=== PATIENT | male | born 1975 | race Caucasian/White ===

== ENCOUNTER 2017-11-12 21:46 | Emergency (ER) | payer OTHER ==
[~2017-11-12] VITALS: Ht 182.9 cm; Wt 82.2 kg
[~2017-11-12 21:46] MED LIST: AUGMENTIN875 MG PO; INDOCIN25 MG PO; MOTRIN800 MG PO; NAPROSYN500 MG PO; TYLENOL EXTRA500 MG PO; ULTRACET1 TABLET PO
[2017-11-12 21:48] VITALS: BP 135/86
[2017-11-12] MEDS ORDERED: ULTRACET1 TABLET PO (22:38)
[2017-11-12] MEDS ORDERED: MOTRIN800 MG PO (22:38)
== END 2017-11-12 22:48 | disposition home or self-care (01) ==
LOC: EME 21:46
DX: S90.31XA Contusion of right foot, initial encounter (principal); S90.811A Abrasion, right foot, initial encounter; M79.1 Myalgia; W22.8XXA Striking against or struck by other objects, initial encounter
CPT/HCPCS: 73630; 99281; 99284